=== PATIENT | female | born 2000 | race Caucasian/White ===

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

== ENCOUNTER 2021-02-09 16:43 | Outpatient (REF) | payer MEDICAID, SELFPAY ==
--- NOTE | 2021-02-09 14:15 | PAPFT_PTH ---
PATIENT: Dot Pacheco LOC: [facility] [id number] AGE/SX: 20/F ROOM: RE02/09/[address]: Elvira Diaz : 2000 BED: DIS: 02/09/2021 SPEC #: [id number] RECD: 02/10/21 12:52 STATUS: JO REEstefani #: [id number] MARCE: 02/09/21 14:[address]: Elvira Diaz DEPT: [facility] Cytology RECD BY: Alia Saenz ENTERED: 02/10/21 12:53 SP TYPE: PAPFT OTHR DR: Lesley Ortiz Tissues: 1 - CX/ENDOCX FOR PAP SMEARS Procedures: PAP THIN PREP/UVM Screening Comments: [id number] (CHLAMYDIA/GC)
[2021-02-11 15:09] LABS: Chlamydia Result Negative (Negative); GC Result Negative (Negative)
== END 2021-02-09 16:44 | disposition home or self-care (01) ==
LOC: NCHCN 16:43
PROVIDERS: PCP Nurse Practitioner Family; Visit Provider Family Medicine
DX: Z12.4 Encounter for screening for malignant neoplasm of cervix (principal); Z11.3 Encounter for screening for infections with a predominantly sexual mode of transmission
CPT/HCPCS: 87491; 87591; 88142

== ENCOUNTER 2024-06-12 01:52 | Outpatient (CLI) | payer BC, SELFPAY ==
[2024-06-12 14:55] LABS: Panorama Kit Sent via Fed Ex
[2024-06-12 15:01] LABS: Abs Immature Grans 0.04 10^3/uL (0.0-0.06); Absolute Basophil Count 0.02 10^3/uL (0.0-0.2); Absolute Eosinophil Count 0.23 10^3/uL (0.0-0.7); Absolute Monocyte Count 0.58 10^3/uL (0.1-0.8); Basophils % 0.2 %; Eosinophils % 1.9 %; HCT 38.4 % (36.0-46.0); HGB 12.9 g/dL (11.2-15.7); Immature Grans % 0.3 %; Lymphocytes % 27.5 %; MCH 27.8 pg (27.0-33.0); MCHC 33.6 % (32.0-36.0); MCV 83 fL (80-95); MPV 11.1 fL (8.0-11.0); Monocytes % 4.8 %; Neutrophils % 65.3 %; Platelet Count 317 10^3/uL (130-400); RBC 4.64 10^6/uL (3.93-5.22); RDW 13.3 % (11.7-14.6); RDW-SD 40.1 fL; WBC 11.99 10^3/uL (4.4-10.8)
[2024-06-12 15:02] LABS: Absolute Neutrophil Count 7.83 10^3/uL (1.2-6.7)
[2024-06-12 18:05] LABS: ALT 22 U/L (14-59); AST 12 U/L (15-37); Albumin 2.8 g/dL (3.4-5.0); Alkaline Phosphatase 72 U/L (46-116); Anion Gap 13.6 mmol/L (3-11); BUN 5 mg/dL (7-18); Bilirubin, Total 0.31 mg/dL (0.2-1.0); CO2 21.4 mmol/L (21.0-32.0); CREATININE 0.7 mg/dL (0.55-1.02); Calcium 8.9 mg/dL (8.5-10.1); Chloride 105 mmol/L (98-107); Estimated GFR 123.01 (mL/min/1.73m2); Glucose 142 mg/dL (74-106); Potassium 3.3 mmol/L (3.5-5.1); Sodium 140 mmol/L (136-145); TSH (W/Ref FT4) 0.74 uIU/mL (0.36-3.74); Total Protein 7.3 g/dL (6.4-8.2)
[2024-06-12 23:32] LABS: Hepatitis B Surface Ag Negative (Negative)
[2024-06-13] LABS: Hepatitis C Ab w Rflx HCV PCR Negative (Negative)
[2024-06-13 00:05] LABS: HIV-1/2 Ag & Ab Screen Negative (Negative)
[2024-06-13 14:13] LABS: Rubella IgG Ab (UVM) Positive (See Note); Varicella IgG Antibody Positive (See Note)
[2024-06-14 14:59] LABS: Syphilis IgG w/Reflex Nonreactive (Nonreactive)
== END 2024-06-12 01:53 | disposition home or self-care (01) ==
PROVIDERS: PCP Nurse Practitioner Family; Visit Provider Advanced Practice Midwife
DX: Z34.91 Encounter for supervision of normal pregnancy, unspecified, first trimester (principal)
CPT/HCPCS: 36415; 80053; 86787; 86803; 86850; 86900; 86901; 87340; 87389; 84443; 85025; 86762; 86780

== ENCOUNTER 2024-06-12 14:08 | Outpatient (REF) | payer BC, SELFPAY ==
[2024-06-12 16:42] LABS: *AMPHETAMINES SCREEN URINE Negative (Negative); *BARBITURATES SCREEN URINE Negative (Negative); *BENZODIAZEPINES SCREEN URINE Negative (Negative); Cannabinoids THC Negative (Negative); Cocaine Screen,Urine Negative (Negative); METHADONE URINE SCREEN Negative (Negative); OPIATES URINE SCREEN Negative (Negative)
[2024-06-12 16:44] LABS: Tricyclic Antidepressants Negative (Negative)
[2024-06-13 11:45] LABS: Fentanyl Scr w/Rfx Confirm Negative ng/mL (<1)
[2024-06-13 12:18] LABS: Chlamydia Result Negative (Negative); GC Result Negative (Negative)
[2024-06-17 14:26] LABS: Buprenorphine Negative ng/mL (Cutoff: 5.0); Norbuprenorphine Negative ng/mL (Cutoff: 2.5)
== END 2024-06-12 14:09 | disposition home or self-care (01) ==
LOC: LBN 14:08
PROVIDERS: PCP Nurse Practitioner Family; Visit Provider Advanced Practice Midwife
DX: Z34.91 Encounter for supervision of normal pregnancy, unspecified, first trimester (principal)
CPT/HCPCS: 80307; 80348; 87491; 87591; 87086

== ENCOUNTER 2024-07-11 01:14 | Outpatient (CLI) | payer BC, SELFPAY ==
[2024-07-11 10:33] LABS: Glucose 1 Hour 134 mg/dL
[2024-07-11 13:36] LABS: Glucose 3 Hour 53 mg/dL
== END 2024-07-11 01:15 | disposition home or self-care (01) ==
PROVIDERS: PCP Nurse Practitioner Family; Visit Provider Advanced Practice Midwife
DX: Z34.92 Encounter for supervision of normal pregnancy, unspecified, second trimester (principal)
CPT/HCPCS: 36415; 82951

== ENCOUNTER 2024-08-08 13:02 | Outpatient (REF) | payer BC, SELFPAY ==
[2024-08-09 10:23] LABS: HSV 1 DNA Result Negative (Negative); HSV 2 DNA Result Positive (Negative)
== END 2024-08-08 13:03 | disposition home or self-care (01) ==
LOC: LBN 13:02
PROVIDERS: PCP Nurse Practitioner Family; Visit Provider Advanced Practice Midwife
DX: N94.9 Unspecified condition associated with female genital organs and menstrual cycle (principal); Z34.92 Encounter for supervision of normal pregnancy, unspecified, second trimester
CPT/HCPCS: 87529

== ENCOUNTER 2024-10-02 03:19 | Outpatient (CLI) | payer BC, SELFPAY ==
[2024-10-02 09:39] LABS: HCT 37.5 % (36.0-46.0); HGB 12.7 g/dL (11.2-15.7); MCH 28.4 pg (27.0-33.0); MCHC 33.9 % (32.0-36.0); MCV 84 fL (80-95); Platelet Count 312 10^3/uL (130-400); RBC 4.47 10^6/uL (3.93-5.22); RDW 13.8 % (11.7-14.6); RDW-SD 42.4 fL; WBC 11.29 10^3/uL (4.4-10.8)
[2024-10-02 09:59] LABS: Hemoglobin A1C 4.6 % (<5.7)
[2024-10-02 10:24] LABS: Glucose,1 Hr (Glucola) 95 mg/dL (80-140)
== END 2024-10-02 03:20 | disposition home or self-care (01) ==
LOC: LBO 03:19
PROVIDERS: PCP Nurse Practitioner Family; Visit Provider Advanced Practice Midwife
DX: Z34.92 Encounter for supervision of normal pregnancy, unspecified, second trimester (principal)
CPT/HCPCS: 36415; 82950; 85027; 83036

== ENCOUNTER 2024-10-02 09:15 | Outpatient (REF) | payer BC, SELFPAY ==
[2024-10-02 10:28] LABS: *AMPHETAMINES SCREEN URINE Negative (Negative); *BARBITURATES SCREEN URINE Negative (Negative); *BENZODIAZEPINES SCREEN URINE Negative (Negative); Cannabinoids THC Negative (Negative); Cocaine Screen,Urine Negative (Negative); METHADONE URINE SCREEN Negative (Negative); OPIATES URINE SCREEN Negative (Negative)
[2024-10-02 10:40] LABS: Tricyclic Antidepressants Negative (Negative)
[2024-10-03 11:17] LABS: Fentanyl Scr w/Rfx Confirm Positive ng/mL (<1)
[2024-10-04 08:29] LABS: Fentanyl Confirmation Negative ng/mL (<2); Norfentanyl Confirmation Negative ng/mL (<10)
[2024-10-09 08:40] LABS: Buprenorphine Negative ng/mL (Cutoff: 5.0); Norbuprenorphine Negative ng/mL (Cutoff: 2.5)
== END 2024-10-02 09:16 | disposition home or self-care (01) ==
LOC: LBN 09:15
PROVIDERS: PCP Nurse Practitioner Family; Visit Provider Advanced Practice Midwife
DX: Z34.90 Encounter for supervision of normal pregnancy, unspecified, unspecified trimester (principal)
CPT/HCPCS: 80307; 80348; 80354

== ENCOUNTER 2024-10-30 01:42 | Outpatient (CLI) | payer BC, SELFPAY ==
--- NOTE | 2024-10-30 06:45 | DI.US_ITS ---
Exam(s) US OB MERRITT WEIGHT EXAM: US OB MERRITT WEIGHT CLINICAL HISTORY: interval growth,high bmi,z34.90. TECHNIQUE: Transabdominal obstetrical ultrasound performed. COMPARISON: US US OB 2-3 TRIMESTER from 08/08/2024 FINDINGS: Number of fetuses: 1 position: The fetus is in the transverse position with the head to the maternal right. Placental location: There is a grade 1 fundal and left-sided placenta. No evidence of previa. BIOMETRIC DATA: BPD: 8.4cm, 33weeks 6days HC: 31.31cm, 35weeks 1day AC: 27.82cm, 31weeks 6days FL: 6.59cm, 34weeks EFW: 2,094.56g, 4lb 9.32oz, 75.8% Composite Age: 33weeks 5days KARLEY: 12/13/2024 Heart Rate: 155bpm Amniotic fluid index: 22.82cm. The largest pocket measures 8.5 cm. IMPRESSION: 1. Single live intrauterine gestation as above. 2. Estimated weight is 2095gms. This is the 76th percentile. 3. Amniotic fluid index is 22.8 cm. The largest pocket measures 8.5 cm. DATA REPOSITORY:
== END 2024-10-30 02:02 ==
LOC: DI 01:43
PROVIDERS: PCP Nurse Practitioner Family; Visit Provider Advanced Practice Midwife
DX: Z34.93 Encounter for supervision of normal pregnancy, unspecified, third trimester (principal); Z3A.33 33 weeks gestation of pregnancy
CPT/HCPCS: 76816

== ENCOUNTER 2024-11-28 01:09 | Outpatient (CLI) | payer BC, SELFPAY ==
--- NOTE | 2024-11-28 08:00 | DI.US_ITS ---
Exam(s) US OB MERRITT WEIGHT EXAM: US OB MERRITT WEIGHT CLINICAL HISTORY: size and merritt, HIGH BMI,Z34.90,. TECHNIQUE: Transabdominal obstetrical ultrasound performed. COMPARISON: US US OB 2-3 TRIMESTER from 08/08/2024 US US OB MERRITT WEIGHT from 10/30/2024 FINDINGS:: Number of fetuses: 1 position: Cephalic Placental location: Left posterior, grade 2 no evidence of previa. BIOMETRIC DATA: BPD: 90 mm, 36+ 4 weeks HC: 342 mm, 39+ 3 weeks AC: 324 mm, 36+ 2 weeks FL: 69 mm, 30 5+2 weeks EFW: 2927, 63, Composite Age: 36+ 6 KARLEY: 20 December 2024 Heart Rate: 136 Amniotic fluid index: 21.1. Visually, amount of fluid is within normal limits. IMPRESSION: size and weight are within the expected range. MERRITT 21.1 cm DATA REPOSITORY:
== END 2024-11-28 01:29 ==
LOC: DI 01:09
PROVIDERS: PCP Nurse Practitioner Family; Visit Provider Obstetrics & Gynecology
DX: Z34.93 Encounter for supervision of normal pregnancy, unspecified, third trimester (principal); Z3A.36 36 weeks gestation of pregnancy
CPT/HCPCS: 76816

== ENCOUNTER 2024-11-28 16:28 | Outpatient (REF) | payer BC, SELFPAY | END 2024-11-28 16:29 | disposition home or self-care (01) | LOC: LBN 16:28 | PROVIDERS: PCP Nurse Practitioner Family; Visit Provider Advanced Practice Midwife | DX: Z34.93 Encounter for supervision of normal pregnancy, unspecified, third trimester (principal); Z3A.36 36 weeks gestation of pregnancy | CPT/HCPCS: 87081 ==

== ENCOUNTER 2024-12-19 11:34 | Inpatient (IN) | payer BC, MEDICAID, SELFPAY ==
[2024-12-19] VITALS (64 sets, daily range): BP systolic 110–131; BP diastolic 60–63; PULSE 0–122; RESP 18; TEMP 36.4–36.7; O2SAT 97–98
--- NOTE | 2024-12-19 11:36 | HPE_ITS ---
Date of service: 12/19/24 Time of Service: 13:09 Assessment and Plan Assessment and plan (1) High BMI: Status: Acute Assessment and plan: Dot agrees to saline lock (2) Encounter for induction of labor: Status: Acute Assessment and plan: Admit to Center and routine admission labs. Reviewed cervical ripening methods and Dot elects to try cervical ripening balloon and will consider misoprostol if indicated. Comfort measures. Anticipate . OB-HPI Labor/Delivery History of Present Illness Reason for Visit: induction of labor Chief Complaint: Scheduled Induction of Labor (BMI 49 and maternal discomfort) Indication for Induction: Other (BMI 49 and maternal discomfort); Maternal Discomfort , Associated Signs and Symptoms of Maternal Discomfort: contractions ; Other (pre- BMI 49). KARLEY Calculator Estimated Delivery Date Method Current WG Current Estimate 12/26/24 Ultrasound #1 39w 0d Other Estimates 12/01/24 LMP (Uncertain) 42w 4d Comments: Dot presented to her visit today. She has been having frequent contractions and passed her mucus plus. She was scheduled for IOL on 12/23 but strongly wishes to proceed with IOL today. History of Present Expected Delivery Route/Plan - CNM FOB - Richard Sanchez (his first child) BB yes to circ Wants to use tub and nitrous, then will want epidural Support team is FOB, aunt Bonnie, FOB's mom Soheila GBS negative Specific Issues/Plan 1. Obesity- BMI 49- ASA recommended, Early 1-hr JPR=001, CMP abnormal- patient ill and vomiting, 3hr- 78,134,95,53 1a. Declines 3-hr GTT at 28 weeks. 1 hr glucola -95, HgbA1C also -4.6 2. URI 06/12/24 -uses inhaler, quit vaping. 06/21: reports URI for nearly 1 month, Z-pack Rx'ed for bronchitis - At 20 wks is still vaping 2-3x/day, no MJ use 3. Difficult regional analgesia & elevated BMI- (anesthesia notes from [facility] scanned to chart) - [employer]PERATOR consult done 11/20/24 - prefer to be called early in labor. 4. 5-Ps pos for family history, UDS- neg, 28 wk UDS -neg (fent was + but confirmation testing=negative) 5. -T-m-o-i-r-e-s- -q-a-u-m-j-f-r-t-u-m- -T-L-,- plan 32 wk consent appt with Done-will have Mirena placed after 6 week PPE with MD 6. EFW in 89th percentile at 20 wks, recheck interval growth at 32 wks- EFW 75%ile, MERRITT 22.82 cm - Repeat sono at 36wks for growth and presentation (was transverse at 32wks) 7. 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 (Acute) Female genital lesion (Acute) High BMI (Acute) 49 (Acute) Obesity (Chronic) Medical History (Updated 12/19/24 @ 11:36 by Meg Askew CNM) Vaping nicotine dependence, tobacco product Low back pain Anxiety Bone fracture Family History (Updated 06/12/24 @ 14:36 by Meg Askew CNM) Maternal Grandmother , 52 Breast cancer 52 Hypertension Paternal Grandmother Diabetes Paternal Grandfather Heart disease Mother Substance use disorder methadone treatment Asthma Father , age 41 Substance use disorder methadone treatment Heart disease Social History Smoking/Tobacco Use Status: Current-Occasional Tobacco: How many years used: 13 Smokeless tobacco user: other (VAPE) Quit status: has quit before Smoking risk assessment performed?: Yes Drug use: Never Household members: significant other and children Do you feel safe in your relationship?: Yes Female Reproductive History Menstrual Age of Menarche: 12 Duration of menses: 6-7 days History History 3 Para 2 Hx # Term Pregnancies 2 Multiple births 0 Hx # Pregnancies 0 Ectopic pregnancies 0 AB induced 0 Hx Number of Living Children 2 AB spontaneous 0 Past Pregnancies Del. Date GA/Weeks # Preg Succ Route Wgt Sex Labor Lgth Anesth esia Location [facility] 02/18/19 38 No Yes vaginal 7 lb 7 oz Female 40 hrs regional Dora Mas at [facility] 11/07/19 39 No Yes vaginal 7 lb Male 30 regional Jon at [facility] Delivery Date: 02/18/19 Last Updated by: Kriss slaughter labor Marielle Delivery Date: 11/07/19 Last Updated by: Kriss Espino PROM, Pitocin IOL, Internal version by MD during labor (can't recall if baby stayed breech or not). Alonso Meds Allergies and Home Medications Allergies Allergy/AdvReac Type Severity Reaction Status Date / Time No Known Allergies Allergy Unverified 12/19/24 10:07 Home Medications ?Medication ?Instructions ?Recorded ?Confirmed ?Type albuterol sulfate 90 mcg/actuation 2 puff inhalation Q 2H PRN PRN #1 04/17/16 12/19/24 Rx aerosol inhaler (ProAir HFA) inh inhalational spacing device (Space ##1 04/17/16 Rx Chamber Plus) docosahexaenoic acid 200 mg mg PO 04/24/24 12/19/24 Hi story capsule ( DHA) aspirin 81 mg capsule 162 mg (2 x 81 mg) PO DAILY #60 06/12/24 12/19/24 Rx caps ondansetron HCl 4 mg tablet 4 mg PO Q6H PRN nausea and 06/12/24 12/19/24 Rx vomiting #30 tabs triamcinolone acetonide 0.1 % 1 applic topical BID #80 grams 10/17/24 12/19/24 Rx topical cream valacyclovir 1 gram tablet 1,000 mg PO DAILY #30 tabs 12/02/24 12/19/24 Rx (Valtrex) Exam Physical Exam Vital Signs Reviewed: Yes Constitutional Constitutional: no acute distress Detailed Labor and Delivery Exam Dilation: 1 Effacement (%): 30 station: -2 Cervix position: mid Consistency: soft Galeano Score: Cervical Points Exam 0 1 2 3 Dilation Closed 1-2cm 3-4 cm 5-6cm Effacement 0-30% 40-50% 60-70% 80% Consistency Firm Medium Soft Station -3 -2 -1,0 +1,+2 Position Posterior Mid Anterior Amniotic Membrane Status: Intact Monitor Mode: External Contraction Frequency(min): irregular Contraction Duration(sec): vary Contraction Intensity: Mild Fetus A Heart Rate Baseline: 130 Monitor Accelerations: 15 X 15 Monitor Decelerations: None Variability: Moderate (6-25 BPM) Presentation: Cephalic Categories: Category I Est. Weight: 7 lb HEENT Exam HEENT Exam: Normal Respiratory Exam Respiratory Exam: Normal Cardiovascular Exam Cardiovascular Exam: Normal Abdominal Exam Abdominal Exam: Normal Exam Exam: Normal Extremities Exam Extremities Exam: Normal Skin Exam Skin Exam: Normal Psychiatric Exam Psychiatric Exam: Normal Risk Assessment Risk for Shoulder Dystocia Historical/Initial OB: NEGATIVE FOR: Pelvic Abnormality, Pre- BMI>30, Previous Shoulder Dystocia or Previous Macrosomia 36 Weeks: NEGATIVE FOR: Current Gestational DM, EFW>4500gms or Maternal Weight Gain>40lbs 40 Weeks: NEGATIVE FOR: EFW> 4500 gms, Maternal Weight Gain >40lb or Post Dates Increased Risk?: No Delivery Plan @ 36wks: Risk for Pre-Eclampsia Date Initiated/Initials: 06/12/24 BMI 49 Yes, if one or more: NEGATIVE FOR: Hx Pre-E/Gest HTN, Chronic HTN, Multiple Gestation, Pre-gestational DM, Renal Disease, Systemic Lupus or APA Syndrome Yes, if 2 or more: POSITIVE FOR: BMI>30; NEGATIVE FOR: Nulliparity, Age>= 35 yrs, >10yr btwn pregnancies, ethinicty, Mother/Sister w/ Pre-E or Previous IUGR Risk for Post- Hemorrhage Initial: NEGATIVE FOR: Multiple Gestation, Previous PPH, Known Clotting Deficiency, Grand Multiparity or Anticoagulation 36 Weeks: NEGATIVE FOR: Anemia, hgb<10, Low platelets(thrombocytopenia), Gestational HTN or Pre-E, Polyhydraminios or EFW>4500gms 40 Weeks: NEGATIVE FOR: Anemia, hgb<10, Low platelets (thrombocytopenia), Gestation HTN or Pre-E, Polyhydraminios or EFW>4500gms Counseled re: Active Management: Yes Risks Reviewed Risks Reviewed Upon Admission: Yes
[2024-12-19 12:15] LABS: HCT 36.9 % (36.0-46.0); HGB 12.3 g/dL (11.2-15.7); MCH 27.3 pg (27.0-33.0); MCHC 33.3 % (32.0-36.0); MCV 82 fL (80-95); MPV 11.5 fL (8.0-11.0); Platelet Count 291 10^3/uL (130-400); RBC 4.50 10^6/uL (3.93-5.22); RDW 14.7 % (11.7-14.6); RDW-SD 43.8 fL; WBC 15.11 10^3/uL (4.4-10.8)
[2024-12-19] MEDS: Normal Saline Flush 10 ML SYR IVP ×2 (18:31→20:00)
[2024-12-19] MEDS: miSOPROStol 25 MCG TAB 50 MCG PO ×2 (19:15→23:39)
[2024-12-19] MEDS: Zolpidem 5 MG TAB 10 MG PO (21:49)
--- NOTE | 2024-12-19 21:49 | W.PM.OBNL1 ---
Date of service: 12/19/24 Time of Service: 21:49 Informed Consent Informed Consent: Risk,Benefits,Alternatives Discussed (Dot desires continued cervical ripening) Pelvic Exam Dilation: 1 Effacement (%): 40 station: -2 Cervix Position: posterior Consistency: soft Vaginal Exam Presentation: Cephalic Contractions Monitor Mode: External Contraction Frequency(min): every 2-3 Contraction Duration(sec): 40-50 Intensity: Mild/Moderate Fetus A Monitor: External (US) Heart Rate Baseline: 130 Presentation: Cephalic Variability: Moderate (6-25 BPM) Categories: Category I FHR Rhythm: Regular Accelerations: 15 X 15 Decelerations: None Assessment and Plan Assessment and plan (1) Encounter for induction of labor: Status: Acute Assessment and plan: Will continue cervical ripening with PO misoprostol. Ambien PO offered for sleep tonight. Will reassess PRN and encourage rest. Objective Abnormal lab results 12/19/24 Range/Units 12:02 WBC 15.11 H (4.4-10.8) 10^3/uL RDW 14.7 H (11.7-14.6) % MPV 11.5 H (8.0-11.0) fL Temp Pulse Resp BP Pulse Ox 98.1 F 80 18 131/60 97 12/19/24 16:10 12/19/24 21:48 12/19/24 16:10 12/19/24 21:48 12/19/24 16:12 Laboratory Results WBC 15.11 10^3/uL (4.4-10.8) H 12/19/24 12:02 RBC 4.50 10^6/uL (3.93-5.22) 12/19/24 12:02 Hgb 12.3 g/dL (11.2-15.7) 12/19/24 12:02 Hct 36.9 % (36.0-46.0) 12/19/24 12:02 MCV 82 fL (80-95) 12/19/24 12:02 MCH 27.3 pg (27.0-33.0) 12/19/24 12:02 MCHC 33.3 % (32.0-36.0) 12/19/24 12:02 RDW 14.7 % (11.7-14.6) H 12/19/24 12:02 Plt Count 291 10^3/uL (130-400) 12/19/24 12:02 MPV 11.5 fL (8.0-11.0) H 12/19/24 12:02 ABO/Rh O Positive 12/19/24 12:02 Antibody Screen NEGATIVE 12/19/24 12:02 Subjective Patient Reports: New Complaints Interval history since last seen: Dot has been ambulating. The balloon fell out when she returned from a walk outside. misoprostol 50 mcg was given PO and she began to feel mild contractions. Results Hemoglobin/Hematocrit: Hgb 12.3 g/dL (11.2-15.7) 12/19/24 12:02 Hct 36.9 % (36.0-46.0) 12/19/24 12:02 Abnormal Lab Findings: Abnormal Labs 12/19/24 12:02 WBC 15.11 H RDW 14.7 H MPV 11.5 H Ultrasound OB Ultrasound for presentation. Indication: BMI 49 Exam complete. WW Pocus Exam Exam testing Date/Time of Exam: Date of exam: 12/19/2024 Time of exam: 9:52 pm KARLEY Calculator Estimated Delivery Date Method Current WG Current Estimate 12/26/24 Ultrasound #1 39w 0d Other Estimates 12/01/24 LMP (Uncertain) 42w 4d position Gestational age (weeks): 39 Presentation: Vertex Coding for Transabdominal exam: Complete exam
[2024-12-20] VITALS (224 sets, daily range): BP systolic 107–157; BP diastolic 56–90; PULSE 0–150; RESP 16–18; TEMP 36.4–37.1; O2SAT 96–98; BMI 45.3
[2024-12-20] MEDS: miSOPROStol 25 MCG TAB 50 MCG PO (03:56)
--- NOTE | 2024-12-20 08:04 | W.PM.OBNL1 ---
Date of service: 12/20/24 Time of Service: 08:04 Informed Consent Informed Consent: Risk,Benefits,Alternatives Discussed (Dot desires continued cervical ripening) Pelvic Exam Dilation: 3 Effacement (%): 75 station: -2 Cervix Position: posterior Consistency: soft Vaginal Exam Presentation: Cephalic Contractions Monitor Mode: External Contraction Frequency(min): every 2-3 min Contraction Duration(sec): 50-60 Intensity: Mild/Moderate Fetus A Monitor: External (US) Heart Rate Baseline: 130 Presentation: Cephalic Variability: Moderate (6-25 BPM) Categories: Category I FHR Rhythm: Regular Accelerations: 15 X 15 Decelerations: None Amniotic Membrane Status: Intact Assessment and Plan Assessment and plan (1) Encounter for induction of labor: Status: Acute Assessment and plan: Discussed option of awaiting active labor or pitocin augmentation and Dot wishes to proceed with pitocin augmentation. She wishes to use the tub if possible when her labor is stronger. Care will be assumed by Linda Espino at 0800. Objective Abnormal lab results 12/19/24 Range/Units 12:02 WBC 15.11 H (4.4-10.8) 10^3/uL RDW 14.7 H (11.7-14.6) % MPV 11.5 H (8.0-11.0) fL Temp Pulse Resp BP Pulse Ox 97.9 F 82 16 114/77 96 12/20/24 07:49 12/20/24 08:01 12/20/24 07:49 12/20/24 07:49 12/20/24 07:49 Laboratory Results WBC 15.11 10^3/uL (4.4-10.8) H 12/19/24 12:02 RBC 4.50 10^6/uL (3.93-5.22) 12/19/24 12:02 Hgb 12.3 g/dL (11.2-15.7) 12/19/24 12:02 Hct 36.9 % (36.0-46.0) 12/19/24 12:02 MCV 82 fL (80-95) 12/19/24 12:02 MCH 27.3 pg (27.0-33.0) 12/19/24 12:02 MCHC 33.3 % (32.0-36.0) 12/19/24 12:02 RDW 14.7 % (11.7-14.6) H 12/19/24 12:02 Plt Count 291 10^3/uL (130-400) 12/19/24 12:02 MPV 11.5 fL (8.0-11.0) H 12/19/24 12:02 ABO/Rh O Positive 12/19/24 12:02 Antibody Screen NEGATIVE 12/19/24 12:02 Subjective Patient Reports: New Complaints Interval history since last seen: Dot graham received 3 doses of misoprostol. She slept off and on and awoke with stronger contractions at 0500. Results Hemoglobin/Hematocrit: Hgb 12.3 g/dL (11.2-15.7) 12/19/24 12:02 Hct 36.9 % (36.0-46.0) 12/19/24 12:02 Abnormal Lab Findings: Abnormal Labs 12/19/24 12:02 WBC 15.11 H RDW 14.7 H MPV 11.5 H
[2024-12-20] MEDS: valACYclovir 1,000 MG TAB 1000 MG PO (08:52)
[2024-12-20] MEDS: Normal Saline Flush 10 ML SYR IVP ×2 (08:53→16:05)
[2024-12-20] MEDS: Lactated Ringers 1,000 ML 125 ML IV ×2 (08:56→16:16)
[2024-12-20] MEDS: Oxytocin/Normal Saline 30 UNIT/500 ML BAG 2 UNITS IV (08:57)
--- NOTE | 2024-12-20 10:50 | ANES.PREOP_ITS ---
General Info Date of Service Date Performed: 12/20/24 Height: 5 ft 8 in Weight: 135.171 kg Body Mass Index (BMI): 45.3 Meds Allergies and Home Medications Allergies Allergy/AdvReac Type Severity Reaction Status Date / Time No Known Allergies Allergy Unverified 12/19/24 10:07 Home Medication ?Medication ?Instructions ?Recorded albuterol sulfate 90 mcg/actuation 2 puff inhalation Q 2H PRN PRN #1 04/17/16 aerosol inhaler (ProAir HFA) inh docosahexaenoic acid 200 mg mg PO 04/24/24 capsule ( DHA) aspirin 81 mg capsule 162 mg (2 x 81 mg) PO DAILY #60 06/12/24 caps ondansetron HCl 4 mg tablet 4 mg PO Q6H PRN nausea and 06/12/24 vomiting #30 tabs triamcinolone acetonide 0.1 % 1 applic topical BID #80 grams 10/17/24 topical cream valacyclovir 1 gram tablet 1,000 mg PO DAILY #30 tabs 12/02/24 (Valtrex) Current Visit Medications: Current Medications Generic Name Dose Route Start Last Admin Trade Name Freq PRN Reason Stop Dose Admin Ringer's Solution 1,000 mls @ 125 mls/hr 12/20/24 06:00 12/20/24 08:56 IV 125 mls/hr INFUSION HALLEY Administration Ringer's Solution 1,000 mls @ 200 mls/hr 12/19/24 17:30 IV INFUSION HALLEY Oxytocin/Sodium Chloride 30 unit in 500 mls @ 2 mls/hr 12/20/24 08:15 12/20/24 10:34 Pitocin/Normal Saline IV 8 milliunits/min INFUSION HALLEY 8 mls/hr Protocol Titration 2 MILLIUNITS/MIN IV Miscellaneous Supplies 1 each 12/19/24 11:45 Iv Access IV DIRECTED HALLEY Sodium Chloride 0 ml 12/19/24 11:34 12/19/24 18:31 Normal Saline Flush 10 Ml Syr IVP 10 ml PRN PRN Administration Sodium Chloride 0 ml 12/19/24 20:00 12/20/24 08:53 Normal Saline Flush 10 Ml Syr IVP 10 ml BID HALLEY Administration Sodium Chloride 0 ml 12/20/24 08:03 Normal Saline 10 Ml Vial IJ DIRECTED PRN Terbutaline Sulfate 0.25 mg 12/19/24 17:24 Terbutaline 1 Mg/Ml Vial SC PRN PRN Valacyclovir HCl 1,000 mg 12/20/24 08:30 12/20/24 08:52 Valacyclovir 1,000 Mg Tab PO 1,000 mg DAILY HALLEY Administration PFSH Active Problems Active Problems: Problem Status Onset Code Encounter for induction of labor Acute Z34.90 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 Acute A60.04 Female genital lesion Acute N94.9 High BMI Acute Acute Z34.90 Obesity Chronic E66.9 Medical History Medical History (Updated 12/19/24 @ 11:36 by Meg Askew CNM) Vaping nicotine dependence, tobacco product Low back pain Anxiety Bone fracture Tobacco Smoking/Tobacco Use Status: Current-Occasional Tobacco Type: e-cigarettes Smokeless tobacco user: other (VAPE) Passive smoking exposure: Yes Alcohol Alcohol Intake: former Substance Use Substance use: Never Substance use type: does not use Prental History History 2 3 Para 2 Hx # Term Pregnancies 2 Multiple births 0 Hx # Pregnancies 0 Ectopic pregnancies 0 AB induced 0 Hx Number of Living Children 2 AB spontaneous 0 Past Pregnancies Del. Date GA/Weeks # Preg Succ Route Wgt Sex Labor Lgth Anesth esia Location [facility] 02/18/19 38 No Yes vaginal 3373.593 g Female 40 hrs regional Dora Tg at [facility] 11/07/19 39 No Yes vaginal 3175.147 g Male 30 [address] K ip [address] [facility] Delivery Date: 02/18/19 Last Updated by: Kriss Espino long labor Marielle Delivery Date: 11/07/19 Last Updated by: Kriss Espino PROM, Pitocin IOL, Internal version by during labor (can't recall if baby stayed breech or not). Gavin Vital Signs and Lab Results Vital Signs Most Recent Vital Signs in EMR: Most Recent Vital Signs Temp Pulse Resp BP Pulse Ox 36.5 C 92 H 18 121/70 98 12/20/24 10:37 12/20/24 10:49 12/20/24 10:37 12/20/24 10:37 12/20/24 10:37 Lab Results 12/19/24 12:02 Blood Type / Crossmatch: 2 Antibody Screen NEGATIVE 12/19/24 Complete Blood Count: 2 WBC, (4.4-10.8) 15.11 10^3/uL H 12/19/24, 12:02 RBC, (3.93-5.22) 4.50 10^6/uL 12/19/24, 12:02 Hgb, (11.2-15.7) 12.3 g/dL 12/19/24, 12:02 Hct, (36.0-46.0) 36.9 % 12/19/24, 12:02 Plt Count, (130-400) 291 10^3/uL 12/19/24, 12:02 Anesthesia Assessment and Plan Anesthesia History Personal History: No History of Anesthesia Complications Family History: No Family History of Anesthesia Complications Exercise Tolerance Exercise Tolerance: Metabolic Equivalents>4 Pertinent Negatives Pertinent Negatives: No Major Cardiovascular Symptoms or Complaints and No Major Pulmonary Symptoms or Complaints Cardiac & Pulmonary Exam Cardiac Exam: Normal S1/S2 Heart Sounds Pulmonary Exam: Clear Bilateral Breath Sounds Cardiac and Pulmonary Comment:: E cigarettes, rare inhaler use Implantable Cardiac Device Does patient have a Pacemaker or an ICD?: No Airway Exam Known Difficult Airway: No Mallampati Class: 2 Mouth Opening: Normal (> 3cm) Thyromental Distance: Less than 3 cm Neck Range of Motion: Full ROM Neck Circumference: Thick Teeth Condition: Normal Dentition ASA Classification ASA Score: ASA 3 Emergency Case?: No NPO Status NPO Status: Full Stomach () Status Status: Confirmed Anesthesia Plan Resuscitation Status: Full Code Anesthesia Technique: Labor Epidural (consented for SALLY and c section (spinal/general) PRN) Airway Planned: Natural Airway Monitors Used: Standard Monitors Preoperative Comments:: Difficult epidural attempts without success at [facility] with last baby, successful intrathecal narcotics, but had PDPH and residual low back discomfort and numbness in left hip and buttocks. Consented in case of epidural request, but patient is hoping to avoid with this labor. [facility] records reviewed.
--- NOTE | 2024-12-20 15:15 | W.PM.OBNL1 ---
Date of service: 12/20/24 Time of Service: 15:15 Informed Consent Informed Consent: Induction of Labor, Risk,Benefits,Alternatives Discussed and Other (Pt consents to AROM) Pelvic Exam Dilation: 6.5 Effacement (%): 70 station: -2 Cervix Position: mid Consistency: soft Contractions Monitor Mode: External (NOVI) Contraction Frequency(min): q2-4 Intensity: Moderate Fetus A Monitor: External (US) (NOVI) Heart Rate Baseline: 140 Variability: Moderate (6-25 BPM) Categories: Category II Accelerations: Present Decelerations: Early and Variable Amniotic Membrane Status: Ruptured Rupture Method: Artifical Amniotic Fluid: Clear Amount: large Date of Membrane Rupture: 12/20/24 Time of Membrane Rupture: 15:07 Assessment and Plan Assessment and plan (1) Encounter for induction of labor: Status: Acute Assessment and plan: A: 24 yo with BMI 47, pre- BMI of 50 IOL in progress, admitted last night for cervical ripening s/p miso x3 and balloon which fell out last night Pitocin infusion begun this morning, @ 16 u/min now Has progressed to 6/70%, vtx -2, pt agrees to AROM P: Comfort measures including nitrous, ambulation, shower, etc all day AROM performed for clear fluid, large amount Pt states she wants to avoid epidural anesthesia [employer] was in unit earlier to discuss consent and R&B with pt Anticipate Objective Vital Signs Reviewed: Yes Objective Narrative Objective Narrative: Afebrile, normotensive Lack of progress over past few hours Pt has been ambulating, using the shower and nitrous Pitocin at 16 u/min Overall reassuring status with moderate variability Intermittent early or variable decels noted, quick returns to baseline
[2024-12-20] MEDS: fentaNYL 100 MCG/2 ML VIAL 50 MCG IVP (16:04)
--- NOTE | 2024-12-20 16:21 | W.PM.OBNL1 ---
Date of service: 12/20/24 Time of Service: 16:21 Informed Consent Informed Consent: Induction of Labor, Risk,Benefits,Alternatives Discussed and Other (Pt consents to AROM) Objective Temp Pulse Resp BP Pulse Ox 98.1 F 102 H 16 127/80 98 12/20/24 14:43 12/20/24 16:20 12/20/24 12:33 12/20/24 14:43 12/20/24 14:43 Laboratory Results WBC 15.11 10^3/uL (4.4-10.8) H 12/19/24 12:02 RBC 4.50 10^6/uL (3.93-5.22) 12/19/24 12:02 Hgb 12.3 g/dL (11.2-15.7) 12/19/24 12:02 Hct 36.9 % (36.0-46.0) 12/19/24 12:02 MCV 82 fL (80-95) 12/19/24 12:02 MCH 27.3 pg (27.0-33.0) 12/19/24 12:02 MCHC 33.3 % (32.0-36.0) 12/19/24 12:02 RDW 14.7 % (11.7-14.6) H 12/19/24 12:02 Plt Count 291 10^3/uL (130-400) 12/19/24 12:02 MPV 11.5 fL (8.0-11.0) H 12/19/24 12:02 ABO/Rh O Positive 12/19/24 12:02 Antibody Screen NEGATIVE 12/19/24 12:02 Results Hemoglobin/Hematocrit: Hgb 12.3 g/dL (11.2-15.7) 12/19/24 12:02 Hct 36.9 % (36.0-46.0) 12/19/24 12:02 Abnormal Lab Findings: Abnormal Labs 12/19/24 12:02 WBC 15.11 H RDW 14.7 H MPV 11.5 H
[2024-12-20] MEDS: Oxytocin/Normal Saline 30 UNIT/500 ML BAG 334 UNITS IV (16:33)
[2024-12-20] MEDS: Methylergonovine 0.2 MG/ML VIAL (16:39)
--- NOTE | 2024-12-20 17:10 | OBVDS_ITS ---
Date of service: 12/20/24 Time of Service: 17:10 OB Labor/ Delivery Information Baby A Delivery Delivery Method: Spontaneaous Cephalic Position: Vertex Vertex Position: Right Occipital Anterior Breech Position: N/A Cord Description-Baby A: 3 Vessels and Other (both fists at chin) Amniotic Fluid: Clear Quantitative Blood Loss: 200 Delivery Outcome: Liveborn Infant Transferred: Remains with Mother Note: Labor intensified shortly after AROM at 1507, pitocin flow rate decreased by half as pt was struggling to cope with contractions, pt requested pain medication and received fentanyl 50 mcg's IVP which appeared to help with relaxation between contractions though pt felt the contraction pain itself was not better and so requested an epidural. [employer] was paged however pt began involuntarily bearing down and was found to be fully dilated, very quickly thereafter of a vigorous male infant over intact perineum and placed immediately in mother's arms. Pitocin IV bolus started, cord ceased pulsations and was clamped then cut by FOB, cord blood collected. Karen placenta delivered intact with 3VC, no lacerations were noted upon inspection of vulva and vagina. Fundus firm below umbilicus, lochia well controlled, strong family bonding observed, apgars 8/9, weight 2855 gms. Providers Nurse Transmitter Chief: Kriss Espino Nurse: Michael Daniels Nurse: Holly Awad Labor/Delivery Information Number of Babies in Womb: 1 Steroids Given: None Reason Steroids Not Administered: N/A Group Beta Strep: Negative Rubella Status: Immune Blood Type: O+ Varicella Immunity: Immune Shoulder Dystocia: No Stages of Labor Onset of Labor Date: 12/20/24 Onset of Labor Time: 09:00 Complete Dilatation Date: 12/20/24 Complete Dilatation Time: 16:20 Labor - Stage 1 Duration: 7 hours and 20 minutes ROM Baby A: 12/20/24 ROM Baby A: 15:07 Delivery Date-Baby A: 12/20/24 Delivery Time-Baby A: 16:32 Labor Stage 2 Duration: 12 minutes Placenta Delivery Date-Baby A: 12/20/24 Placenta Delivery Time-Baby A: 16:38 Labor-Stage 3 Duration: 6 minutes Total Length of Labor-Baby A: 7 hours and 32 minutes Placenta Cultured: No Placenta Status: Delivered Baby A Gender: Male Gestational Status: Term (39-41.6 wks) Gestational Age in Weeks/Days: 39 Weeks and 1 Days weight: 6 lb 4.707 oz Weight Comment: 2855 gms Score-1 Minute Interval(Baby A) Heart Rate-1 minute: 100 BPM or Greater Respiratory Effort- 1 minute: Slow Respiration/Weak Cry Muscle Tone-1 minute: Active Movement Reflex Response-1 minute: Prompt Response Color-1 minute: Bluish Hands or Feet Total Score-1 minute: 8 Score-5 Minute Interval(Baby A) Heart Rate- 5 minute: 100 BPM or Greater Respiratory Effort-5 minute: Spontaneous/Strong Cry Muscle Tone-5 minute: Active Movement Reflex Response-5 minute: Prompt Response Color-5 minute: Bluish Hands or Feet Total Score- 5 minute: 9
[2024-12-20] MEDS: Ibuprofen 600 MG TAB PO (19:53)
[2024-12-20] MEDS: Acetaminophen 325 MG TAB 650 MG PO (19:53)
[2024-12-21] MEDS: Ibuprofen 600 MG TAB PO ×2 (03:50→11:48)
[2024-12-21] MEDS: Acetaminophen 325 MG TAB 650 MG PO ×2 (03:50→11:49)
[2024-12-21 07:45] VITALS: BP 101/70; PULSE 77; RESP 16; TEMP 36.6; O2SAT 99
[2024-12-21] MEDS: Docusate Sodium 100 MG CAP PO (09:09)
[2024-12-21 11:55] VITALS: BP 115/71; PULSE 79; RESP 16; TEMP 36.4; O2SAT 100
--- NOTE | 2024-12-21 14:27 | W.PM.OBDISCH ---
Date of service: 12/21/24 Time of Service: 14:28 DS: Diagnosis Discharge Diagnosis (1) Encounter for induction of labor: Status: Acute (2) Delivery outcome of single liveborn : Status: Acute (3) Vaginal delivery: Status: Acute Asessment and Plan: NSVB without complications. Adjusting well to . She has adequate family support at home. Dot requests being discharged home today. Plan: - Discharge to home - Reviewed warnings and education. Handouts given. - Return to the clinic in 2 and 6 weeks. - Plan Mirena IUD insertion at 6 weeks. - Offered home visiting nursing visit, which Dot declines. Discharge Plan Disposition Patient Disposition: Home Condition: Stable Discharge Details Reason For Visit: induction of labor Admit Date/Time: 12/19/24 11:34 Admit Provider: Meg Askew Attending Provider: Meg Askew Primary Care Provider: Lesley Ortiz Hospital Course Hospital Course: Admitted from home for elective IOL. Home Meds and New Rx's Prescriptions: Continued DHA 200 mg capsule PO albuterol sulfate [ProAir HFA] 200 PUFF HFA aerosol inhaler 2 puff Inhalation Q2H PRN PRNQty: 1 1RF Discontinued triamcinolone acetonide 0.1 % cream 1 applic topical BID Qty: 80 0RF ondansetron HCl 4 mg tablet 4 mg PO Q6H PRN (Reason: nausea and vomiting) Qty: 30 2RF aspirin 81 mg capsule 162 mg PO DAILY Qty: 60 7RF valacyclovir [Valtrex] 1 gram tablet 1,000 mg PO DAILY Qty: 30 3RF Discharge Instructions Stand Alone Forms: BC Instructions, BC Post Vaginal Deliver Activity:: Activity as Tolerated Equipment/Supplies:: No Equipment Needed Diet:: As Tolerated OB:DS Summary Summary Vaginal Delivery Method: Spontaneaous Episiotomy Description: None Laceration Description: None Laceration Extension: N/A Contraception Discussed Contraception Discussed: Yes Contraceptive Plan: IUD (Mirena), [place] Gender-Baby A: Male weight: 6 lb 4.707 oz Status at Discharge Functional status at discharge: independent ambulation Overall status at discharge: patient is back to baseline Mental Status: mental status grossly normal Speech and Movement: speech and movement normal Mood: congruent mood Affect: normal affect Exam Physical Exam Vital signs: Temp Pulse Resp BP Pulse Ox 97.5 F L 79 16 115/71 100 12/21/24 11:55 12/21/24 11:55 12/21/24 11:55 12/21/24 11:55 12/21/24 11:55 Narrative: General: well-appearing, NAD Neck: supple, NT Respiratory: CTAB, unlabored CV: NST without murmur Breast: nipples intact without abrasion GI: soft, NT : fundus firm at 1 FB below umbilicus, Perineum deferred as intact MSK: no homans, no clonus, trace bilateral pedal edema Integument: warm, dry, pink Psychiatric: cooperative, appropriate mood and affect PFSH All Active Problems Vaginal delivery (Acute) Delivery outcome of single liveborn infant (Acute) Encounter for induction of labor (Acute) High BMI (Acute) 49 (Acute) Obesity (Chronic) Medical History Female genital lesion 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 Vaping nicotine dependence, tobacco product Low back pain Anxiety Bone fracture Family History Maternal Grandmother , 52 Breast cancer 52 Hypertension Paternal Grandmother Diabetes Paternal Grandfather Heart disease Mother Substance use disorder methadone treatment Asthma Father , age 41 Substance use disorder methadone treatment Heart disease Social History Smoking/Tobacco Use Status: Current-Occasional Tobacco Type: e-cigarettes Tobacco: How many years used: 13 Smokeless tobacco user: other (VAPE) Quit status: has quit before Smoking risk assessment performed?: Yes Alcohol Intake: former Drug use: Never Substance use type: does not use Household members: significant other and children Housing: house Do you feel safe at home: Yes Do you feel safe in your relationship?: Yes Female Reproductive History Menstrual Age of Menarche: 12 Duration of menses: 6-7 days History History 3 Para 2 Hx # Term Pregnancies 2 Multiple births 0 Hx # Pregnancies 0 Ectopic pregnancies 0 AB induced 0 Hx Number of Living Children 2 AB spontaneous 0 Past Pregnancies Del. Date GA/Weeks # Preg Succ Route Wgt Sex Labor Lgth Anesthesia Location Prov [facility] 02/18/19 38 No Yes vaginal 7 lb 7 oz Female 40 hrs regional Dora Mas at [facility] 11/07/19 39 No Yes vaginal 7 lb Male 30 regional Kip at [facility] Delivery Date: 02/18/19 Last Updated by: Kriss Espino long labor Marielle Delivery Date: 11/07/19 Last Updated by: Kriss Espino PROM, Pitocin IOL, Internal version by MD during labor (can't recall if baby stayed breech or not). Gavin DS: Data Vitals/I&O Vitals and I&O: Vital Signs Temperature 97.5 F L 12/21/24 11:55 Temperature Source Oral 12/21/24 11:55 Pulse 79 12/21/24 11:55 Pulse Rhythm Regular 12/21/24 07:45 Respiratory Rate 16 12/21/24 11:55 Respiratory Depth Normal 12/20/24 20:05 Blood Pressure 115/71 12/21/24 11:55 Blood Pressure Mean 85 12/21/24 11:55 Pulse Oximetry 100 12/21/24 11:55 Oxygen Delivery Method Room Air 12/19/24 13:00 Oxygen Flow Rate 0 12/19/24 13:00 Pain Level 3 12/21/24 11:55 Intake & Output 12/20/24 12/21/24 12/21/24 23:59 11:59 23:59 Intake Total 1151.249 / 1163.650 Output Total 1795 / 2145 Balance -643.751 / -981.350 Intake: IV 1151.249 / 1163.650 Output: Urine 1400 / 1750 Blood 395 / 395 Other: Urine Color Yellow Urine Appearance Clear Urine Odor None
== END 2024-12-21 19:20 | disposition home or self-care (01) | DRG 807 ==
PROVIDERS: Admitting Provider Advanced Practice Midwife; PCP Nurse Practitioner Family; Visit Provider Advanced Practice Midwife
DX: O99.214 Obesity complicating childbirth (principal); Z37.0 Single live birth; E66.9 Obesity, unspecified; Z3A.39 39 weeks gestation of pregnancy; B00.9 Herpesviral infection, unspecified; A60.9 Anogenital herpesviral infection, unspecified
CPT/HCPCS: 59200; 36415; 85027; 86850; 86900; 86901; J2210; J3010; J3490